=== PATIENT | female | born 1940 | race Caucasian/White ===

== ENCOUNTER 2021-12-20 00:51 | Inpatient (IN) | payer MEDICARE ==
[2021-12-20] VITALS (44 sets, daily range): BP systolic 79–140; BP diastolic 29–89
[~2021-12-20] VITALS: Ht 165.1 cm; Wt 87.1 kg
[2021-12-20 02:16] LABS: BASOPHILS % 0.3 % (0.0-1.0); EOSINOPHILS # (AUTO) 0.1 (0.0-0.4); EOSINOPHILS % 0.8 % (0.0-6.0); HEMATOCRIT 27.6 % (34.2-44.1); HEMOGLOBIN 8.6 g/dL (12.0-16.0); LYMPHOCYTES # (AUTO) 0.5 (1.0-3.2); LYMPHOCYTES % 3.5 % (18.0-39.1); MEAN CORPUSCULAR HEMOGLOBIN 30.1 pg (28-32); MEAN CORPUSCULAR HGB CONC 31.2 g/dL (31-35); MEAN CORPUSCULAR VOLUME 96.5 fL (81-99); MONOCYTES # (AUTO) 0.9 (0.2-0.8); MONOCYTES % 6.3 % (4.4-11.3); NEUTROPHILS # (AUTO) 12.8 (2.1-6.9); NEUTROPHILS % 88.5 % (38.7-80.0); PLATELET COUNT 191 x10e3/uL (140-360); RED BLOOD COUNT 2.86 x10e6/uL (3.6-5.1); RED CELL DISTRIBUTION WIDTH 15.8 % (11.7-14.4)
[2021-12-20] MEDS: LACTATED RINGER'S 1,000 ML INJ SCH ×2 (02:25→18:33)
[2021-12-20 02:26] LABS: INR 1.56
[2021-12-20 02:34] LABS: % IRON SATURATION 7 % (15-50); IRON 20 ug/dL (50-170); TOTAL IRON BINDING CAPACITY 294 ug/dL (261-478); TRANSFERRIN 210 mg/dL (180-382)
[2021-12-20 02:37] LABS: ALBUMIN 2.9 g/dL (3.5-5.0); ALBUMIN/GLOBULIN RATIO 0.9 (0.8-2.0); ANION GAP 16.2 mmol/L (8-16); CALCIUM 8.5 mg/dL (8.4-10.2); CREATININE, SERUM 1.4 mg/dL (0.57-1.11); POTASSIUM 4.2 mmol/L (3.5-5.1)
[2021-12-20] MEDS ORDERED: PHYTONADIONE 10 MG/ML AMP IV ONE (03:00)
[2021-12-20] MEDS ORDERED: MELATONIN3 MG PO (03:38)
[2021-12-20] MEDS ORDERED: SIMVASTATIN80 MG PO (03:38)
[2021-12-20] MEDS ORDERED: ULTRAM 50MG50 MG PO (03:38)
[2021-12-20] MEDS ORDERED: ISOSORBIDE MONO20 MG PO (03:38)
[2021-12-20] MEDS ORDERED: ENTRESTO 24 MG1 EACH PO (03:38)
[2021-12-20] MEDS ORDERED: LASIX20 MG PO (03:38)
[2021-12-20] MEDS ORDERED: CARVEDILOL25 MG PO (03:38)
[2021-12-20] MEDS ORDERED: XARELTO20 MG PO (03:38)
[2021-12-20 08:33] LABS: BASOPHILS % 0.3 % (0.0-1.0); EOSINOPHILS # (AUTO) 0.3 (0.0-0.4); EOSINOPHILS % 2.7 % (0.0-6.0); HEMATOCRIT 23.9 % (34.2-44.1); HEMOGLOBIN 7.7 g/dL (12.0-16.0); LYMPHOCYTES # (AUTO) 0.4 (1.0-3.2); LYMPHOCYTES % 3.6 % (18.0-39.1); MEAN CORPUSCULAR HEMOGLOBIN 30.2 pg (28-32); MEAN CORPUSCULAR HGB CONC 32.2 g/dL (31-35); MEAN CORPUSCULAR VOLUME 93.7 fL (81-99); MONOCYTES # (AUTO) 0.8 (0.2-0.8); NEUTROPHILS # (AUTO) 8.8 (2.1-6.9); NEUTROPHILS % 84.7 % (38.7-80.0); PLATELET COUNT 179 x10e3/uL (140-360); RED BLOOD COUNT 2.55 x10e6/uL (3.6-5.1)
[2021-12-20] MEDS ORDERED: SODIUM CHLORIDE 0.9% 250ML 250 ML IV ONE (10:15)
[2021-12-20 12:18] LABS: ALBUMIN 2.7 g/dL (3.5-5.0); ALBUMIN/GLOBULIN RATIO 0.9 (0.8-2.0); ANION GAP 13.1 mmol/L (8-16); CALCIUM 8.6 mg/dL (8.4-10.2); CREATININE, SERUM 1.27 mg/dL (0.57-1.11); POTASSIUM 4.1 mmol/L (3.5-5.1)
[2021-12-20] MEDS ORDERED: ESMOLOL HCL 100MG/10ML 10 MG/ML VIAL ONE (12:18)
[2021-12-20] MEDS: HYDROMORPHONE 1MG/1ML INJ IV PRN (12:32)
[2021-12-20] MEDS ORDERED: DIPHENHYDRAMINE HCL INJ 50 MG/ML VIAL IV ONE ×2 (14:30→17:30)
[2021-12-20 15:10] LABS: CLARITY,URINE HAZY (CLEAR); COLOR,URINE AMBER (YELLOW); KETONES,URINE NEGATIVE (NEGATIVE); LEUKOCYTE ESTERASE ,URINE SMALL (NEGATIVE); NITRITE,URINE POSITIVE (NEGATIVE); PROTEIN,URINE DIPSTICK 1+ (NEGATIVE); URINE UROBILINOGEN 1 mg/dL (0.2 - 1)
[2021-12-20 15:11] LABS: AMORPHOUS SEDIMENT,URINE FEW (FEW); BACTERIA,URINE FEW /HPF; EPITHELIAL CELLS,URINE FEW /LPF; WBC,URINE (MAN) 21-50 /HPF (0-5)
[2021-12-20 15:12] LABS: MUCUS,URINE FEW (RARE)
[2021-12-20] MEDS ORDERED: SODIUM CHLORIDE 0.9% 250ML 250 ML ONE (16:03)
[2021-12-20 18:04] LABS: BASOPHILS % 0.4 % (0.0-1.0); EOSINOPHILS # (AUTO) 0.5 (0.0-0.4); EOSINOPHILS % 6.8 % (0.0-6.0); HEMATOCRIT 31.4 % (34.2-44.1); HEMOGLOBIN 9.9 g/dL (12.0-16.0); LYMPHOCYTES # (AUTO) 0.7 (1.0-3.2); LYMPHOCYTES % 9.1 % (18.0-39.1); MEAN CORPUSCULAR HGB CONC 31.5 g/dL (31-35); MEAN CORPUSCULAR VOLUME 95.2 fL (81-99); MONOCYTES # (AUTO) 0.6 (0.2-0.8); MONOCYTES % 7.5 % (4.4-11.3); NEUTROPHILS # (AUTO) 5.6 (2.1-6.9); NEUTROPHILS % 75.7 % (38.7-80.0); PLATELET COUNT 151 x10e3/uL (140-360)
[2021-12-20] MEDS: SIMVASTATIN 40 MG TAB PO SCH (20:25)
[2021-12-21] VITALS (25 sets, daily range): BP systolic 67–148; BP diastolic 33–68
[2021-12-21] MEDS ORDERED: CYANOCOBALAMIN INJ 1,000 MCG/ML VIAL IM ONE (04:15)
[2021-12-21] MEDS: LACTATED RINGER'S 1,000 ML INJ SCH ×2 (04:40→17:18)
[2021-12-21] MEDS: TRAMADOL HCL 50 MG TAB PO PRN ×2 (05:45→21:12)
[2021-12-21 06:45] LABS: BASOPHILS % 0.3 % (0.0-1.0); EOSINOPHILS # (AUTO) 0.4 (0.0-0.4); EOSINOPHILS % 5.5 % (0.0-6.0); HEMOGLOBIN 9.1 g/dL (12.0-16.0); LYMPHOCYTES # (AUTO) 0.5 (1.0-3.2); LYMPHOCYTES % 7.8 % (18.0-39.1); MEAN CORPUSCULAR HEMOGLOBIN 29.5 pg (28-32); MEAN CORPUSCULAR HGB CONC 30.3 g/dL (31-35); MEAN CORPUSCULAR VOLUME 97.4 fL (81-99); MONOCYTES # (AUTO) 0.6 (0.2-0.8); MONOCYTES % 8.5 % (4.4-11.3); NEUTROPHILS # (AUTO) 5.4 (2.1-6.9); NEUTROPHILS % 77.5 % (38.7-80.0); PLATELET COUNT 145 x10e3/uL (140-360); RED BLOOD COUNT 3.08 x10e6/uL (3.6-5.1); RED CELL DISTRIBUTION WIDTH 17.3 % (11.7-14.4)
[2021-12-21 07:00] LABS: INR 1.06; PROTHROMBIN TIME 14.8 seconds (11.9-14.5)
[2021-12-21 07:10] LABS: ALBUMIN 2.6 g/dL (3.5-5.0); ALBUMIN/GLOBULIN RATIO 0.8 (0.8-2.0); ANION GAP 15.2 mmol/L (8-16); CALCIUM 8.8 mg/dL (8.4-10.2); CREATININE, SERUM 1.18 mg/dL (0.57-1.11); POTASSIUM 4.2 mmol/L (3.5-5.1)
[2021-12-21] MEDS: CYANOCOBALAMIN INJ 1,000 MCG/ML VIAL IM SCH (09:17)
[2021-12-21] MEDS: IRON SUCROSE 100 MG in SODIUM CHLORIDE 0.9% 100 ML IV SCH (09:17)
[2021-12-21] MEDS ORDERED: FUROSEMIDE 40 MG TAB PO ONE (17:30)
[2021-12-21] MEDS ORDERED: FUROSEMIDE INJ 10 MG/ML 4 ML VIAL IV STA (18:29)
[2021-12-21] MEDS: SIMVASTATIN 40 MG TAB PO SCH (21:09)
[2021-12-22] VITALS (8 sets, daily range): BP systolic 127–165; BP diastolic 52–75
[2021-12-22 05:45] LABS: BASOPHILS % 0.5 % (0.0-1.0); EOSINOPHILS # (AUTO) 0.3 (0.0-0.4); HEMATOCRIT 31.4 % (34.2-44.1); HEMOGLOBIN 10.2 g/dL (12.0-16.0); LYMPHOCYTES # (AUTO) 0.8 (1.0-3.2); MEAN CORPUSCULAR HEMOGLOBIN 29.7 pg (28-32); MEAN CORPUSCULAR HGB CONC 32.5 g/dL (31-35); MEAN CORPUSCULAR VOLUME 91.5 fL (81-99); MONOCYTES # (AUTO) 0.8 (0.2-0.8); MONOCYTES % 13.4 % (4.4-11.3); NEUTROPHILS # (AUTO) 3.7 (2.1-6.9); NEUTROPHILS % 65.2 % (38.7-80.0); PLATELET COUNT 149 x10e3/uL (140-360); RED BLOOD COUNT 3.43 x10e6/uL (3.6-5.1); RED CELL DISTRIBUTION WIDTH 16.2 % (11.7-14.4)
[2021-12-22 06:05] LABS: ALBUMIN 2.7 g/dL (3.5-5.0); ALBUMIN/GLOBULIN RATIO 0.7 (0.8-2.0); ANION GAP 17.2 mmol/L (8-16); CALCIUM 9.3 mg/dL (8.4-10.2); CREATININE, SERUM 1.13 mg/dL (0.57-1.11); POTASSIUM 4.2 mmol/L (3.5-5.1)
[2021-12-22] MEDS: CYANOCOBALAMIN INJ 1,000 MCG/ML VIAL IM SCH (10:47)
[2021-12-22] MEDS: TRAMADOL HCL 50 MG TAB PO PRN ×2 (11:02→23:36)
[2021-12-22] MEDS: IRON SUCROSE 100 MG in SODIUM CHLORIDE 0.9% 100 ML IV SCH (11:03)
[2021-12-22] MEDS ORDERED: LIDOCAINE HCL 2% LOCAL INJ 5 ML SDV VIAL INJ ONE (12:34)
[2021-12-22] MEDS ORDERED: PROPOFOL IV EMULSION 10 MG/ML 20 ML VIAL ONE (12:34)
[2021-12-22] MEDS ORDERED: MACROBID 100 M100 MG PO (20:30)
[2021-12-22] MEDS ORDERED: BETAPACE80 MG PO (20:35)
[2021-12-22] MEDS: SIMVASTATIN 40 MG TAB PO SCH (22:36)
[2021-12-22] MEDS ORDERED: SODIUM CHLORIDE 0.9% 250ML 250 ML ONE (22:39)
[2021-12-22] MEDS ORDERED: ISOSORBIDE MONO30 MG PO (22:46)
[2021-12-23] VITALS (7 sets, daily range): BP systolic 110–150; BP diastolic 45–84
[2021-12-23] MEDS ORDERED: BISACODYL 5 MG TAB EC PO ONE ×2 (00:30)
[2021-12-23] MEDS ORDERED: CITRATE OF MAGNESIA 300ML BOTTLE PO ONE ×3 (05:00→19:25)
[2021-12-23 08:54] LABS: BASOPHILS % 0.6 % (0.0-1.0); EOSINOPHILS # (AUTO) 0.4 (0.0-0.4); EOSINOPHILS % 5.5 % (0.0-6.0); HEMOGLOBIN 10.9 g/dL (12.0-16.0); LYMPHOCYTES # (AUTO) 0.8 (1.0-3.2); MEAN CORPUSCULAR HEMOGLOBIN 29.6 pg (28-32); MEAN CORPUSCULAR HGB CONC 31.1 g/dL (31-35); MEAN CORPUSCULAR VOLUME 95.1 fL (81-99); MONOCYTES # (AUTO) 0.8 (0.2-0.8); NEUTROPHILS # (AUTO) 4.6 (2.1-6.9); NEUTROPHILS % 69.1 % (38.7-80.0); PLATELET COUNT 175 x10e3/uL (140-360); RED BLOOD COUNT 3.68 x10e6/uL (3.6-5.1); RED CELL DISTRIBUTION WIDTH 15.5 % (11.7-14.4)
[2021-12-23] MEDS ORDERED: ISOSORBIDE MONONITRATE 30 MG TAB CR PO SCH (09:00)
[2021-12-23 09:17] LABS: ALBUMIN 2.8 g/dL (3.5-5.0); ALBUMIN/GLOBULIN RATIO 0.8 (0.8-2.0); ANION GAP 18.3 mmol/L (8-16); CALCIUM 9.4 mg/dL (8.4-10.2); CREATININE, SERUM 0.94 mg/dL (0.57-1.11); POTASSIUM 4.3 mmol/L (3.5-5.1)
[2021-12-23] MEDS: CYANOCOBALAMIN INJ 1,000 MCG/ML VIAL IM SCH (12:08)
[2021-12-23] MEDS: NITROFURANTOIN MACROCRYSTALS 100 MG CAP PO SCH ×2 (12:08→18:58)
[2021-12-23] MEDS: IRON SUCROSE 100 MG in SODIUM CHLORIDE 0.9% 100 ML IV SCH (12:08)
[2021-12-23] MEDS: VALSARTAN/SACUBITRIL 24MG/26MG 1 EA TAB PO SCH ×2 (12:09→18:58)
[2021-12-23] MEDS: CARVEDILOL 12.5 MG TAB PO SCH ×2 (12:09→18:59)
[2021-12-23] MEDS: FUROSEMIDE 40 MG TAB PO SCH (12:10)
[2021-12-23] MEDS: ISOSORBIDE MONONITRATE 30 MG TAB CR PO SCH (12:10)
[2021-12-23] MEDS ORDERED: SOTALOL HCL 80 MG TAB PO SCH (21:00)
[2021-12-23] MEDS: SIMVASTATIN 40 MG TAB PO SCH (21:07)
[2021-12-23] MEDS: TRAMADOL HCL 50 MG TAB PO PRN (21:11)
[2021-12-23] MEDS: HYDROMORPHONE 1MG/1ML INJ IV PRN (22:45)
[2021-12-23] MEDS: ONDANSETRON HCL INJ 2MG/ML 2ML 2 MG/ML VIAL IV PRN (23:29)
[2021-12-24] VITALS (9 sets, daily range): BP systolic 100–133; BP diastolic 49–94
[2021-12-24] MEDS: IRON SUCROSE 100 MG in SODIUM CHLORIDE 0.9% 100 ML IV SCH (09:15)
[2021-12-24] MEDS: CYANOCOBALAMIN INJ 1,000 MCG/ML VIAL IM SCH (09:15)
[2021-12-24] MEDS: NITROFURANTOIN MACROCRYSTALS 100 MG CAP PO SCH ×2 (09:16→17:29)
[2021-12-24] MEDS: FUROSEMIDE 40 MG TAB PO SCH (09:17)
[2021-12-24] MEDS: ISOSORBIDE MONONITRATE 30 MG TAB CR PO SCH (09:17)
[2021-12-24] MEDS: CARVEDILOL 12.5 MG TAB PO SCH ×2 (09:17→17:00)
[2021-12-24] MEDS: VALSARTAN/SACUBITRIL 24MG/26MG 1 EA TAB PO SCH ×2 (09:18→17:29)
[2021-12-24] MEDS: SOTALOL HCL 80 MG TAB PO SCH ×2 (09:18→17:29)
[2021-12-24] MEDS ORDERED: FUROSEMIDE INJ 10 MG/ML 4 ML VIAL IV ONE (17:15)
[2021-12-24] MEDS: SIMVASTATIN 40 MG TAB PO SCH (20:18)
[2021-12-25] VITALS (8 sets, daily range): BP systolic 105–122; BP diastolic 53–72
[2021-12-25 07:05] LABS: BASOPHILS # (AUTO) 0.1 (0.0-0.1); BASOPHILS % 0.5 % (0.0-1.0); EOSINOPHILS # (AUTO) 0.8 (0.0-0.4); EOSINOPHILS % 5.9 % (0.0-6.0); HEMATOCRIT 32.3 % (34.2-44.1); HEMOGLOBIN 10.2 g/dL (12.0-16.0); LYMPHOCYTES # (AUTO) 0.5 (1.0-3.2); LYMPHOCYTES % 3.4 % (18.0-39.1); MEAN CORPUSCULAR HEMOGLOBIN 29.2 pg (28-32); MEAN CORPUSCULAR HGB CONC 31.6 g/dL (31-35); MEAN CORPUSCULAR VOLUME 92.6 fL (81-99); MONOCYTES % 7.2 % (4.4-11.3); NEUTROPHILS # (AUTO) 11.2 (2.1-6.9); NEUTROPHILS % 81.8 % (38.7-80.0); PLATELET COUNT 176 x10e3/uL (140-360); RED BLOOD COUNT 3.49 x10e6/uL (3.6-5.1); RED CELL DISTRIBUTION WIDTH 15.2 % (11.7-14.4)
[2021-12-25 07:43] LABS: ALBUMIN 2.5 g/dL (3.5-5.0); ALBUMIN/GLOBULIN RATIO 0.7 (0.8-2.0); ALKALINE PHOSPHATASE 69 IU/L (40-150); ANION GAP 18.3 mmol/L (8-16); BLOOD UREA NITROGEN 22 mg/dL (7-26); BUN/CREATININE RATIO 20 (6-25); CALCIUM 8.9 mg/dL (8.4-10.2); CARBON DIOXIDE 28 mmol/L (22-29); CHLORIDE 103 mmol/L (98-107); GLUCOSE 91 mg/dL (74-118); POTASSIUM 3.3 mmol/L (3.5-5.1); SODIUM 146 mmol/L (136-145)
[2021-12-25 07:50] LABS: ALANINE AMINOTRANSFERASE < 6 IU/L (0-55)
[2021-12-25] MEDS: CARVEDILOL 12.5 MG TAB PO SCH ×2 (08:05→17:00)
[2021-12-25] MEDS: NITROFURANTOIN MACROCRYSTALS 100 MG CAP PO SCH ×2 (08:05→17:00)
[2021-12-25] MEDS: IRON SUCROSE 100 MG in SODIUM CHLORIDE 0.9% 100 ML IV SCH (09:00)
[2021-12-25] MEDS: FUROSEMIDE 40 MG TAB PO SCH (09:52)
[2021-12-25] MEDS: CYANOCOBALAMIN INJ 1,000 MCG/ML VIAL IM SCH (09:52)
[2021-12-25] MEDS: ISOSORBIDE MONONITRATE 30 MG TAB CR PO SCH (09:53)
[2021-12-25] MEDS: VALSARTAN/SACUBITRIL 24MG/26MG 1 EA TAB PO SCH ×2 (09:54→17:00)
[2021-12-25] MEDS: SOTALOL HCL 80 MG TAB PO SCH ×2 (09:54→17:00)
[2021-12-25] MEDS ORDERED: POTASSIUM CHLORIDE 20MEQ/100ML 100 ML IV ONE (11:45)
[2021-12-25] MEDS ORDERED: FUROSEMIDE INJ 10 MG/ML 4 ML VIAL IV ONE (11:45)
[2021-12-25] MEDS ORDERED: PEG (High)/E-LYTE SOLN 4,000 ML BTL PO ONE (12:15)
[2021-12-25] MEDS ORDERED: PROPOFOL IV EMULSION 10 MG/ML 20 ML VIAL ONE (12:58)
[2021-12-25] MEDS ORDERED: GLUCAGON FOR INJ 1 MG VIAL ONE (12:58)
[2021-12-25] MEDS ORDERED: LIDOCAINE HCL 2% LOCAL INJ 5 ML SDV VIAL INJ ONE (12:58)
[2021-12-25] MEDS ORDERED: HYOSCYAMINE SULFATE 0.5 MG/ML INJ ONE (12:58)
[2021-12-25] MEDS: SIMVASTATIN 40 MG TAB PO SCH (20:33)
[2021-12-25] MEDS: TRAMADOL HCL 50 MG TAB PO PRN ×2 (22:41→23:00)
[2021-12-25] MEDS: HYDROMORPHONE 1MG/1ML INJ IV PRN (22:59)
[2021-12-25] MEDS: ONDANSETRON HCL INJ 2MG/ML 2ML 2 MG/ML VIAL IV PRN (23:00)
[2021-12-26] VITALS (7 sets, daily range): BP systolic 106–137; BP diastolic 58–83
[2021-12-26] MEDS: MELATONIN 5 MG TABLET PO PRN (02:27)
[2021-12-26] MEDS ORDERED: SODIUM CHLORIDE 0.9% 100 ML ONE (08:33)
[2021-12-26] MEDS: ISOSORBIDE MONONITRATE 30 MG TAB CR PO SCH (08:47)
[2021-12-26] MEDS: VALSARTAN/SACUBITRIL 24MG/26MG 1 EA TAB PO SCH ×2 (08:47→18:29)
[2021-12-26] MEDS: CYANOCOBALAMIN INJ 1,000 MCG/ML VIAL IM SCH (08:47)
[2021-12-26] MEDS: NITROFURANTOIN MACROCRYSTALS 100 MG CAP PO SCH ×2 (08:47→18:29)
[2021-12-26] MEDS: CARVEDILOL 12.5 MG TAB PO SCH ×2 (08:48→17:00)
[2021-12-26] MEDS: FUROSEMIDE 40 MG TAB PO SCH (08:48)
[2021-12-26] MEDS: SOTALOL HCL 80 MG TAB PO SCH ×2 (08:48→18:29)
[2021-12-26 08:54] LABS: BASOPHILS # (AUTO) 0.1 (0.0-0.1); BASOPHILS % 0.5 % (0.0-1.0); EOSINOPHILS # (AUTO) 0.6 (0.0-0.4); EOSINOPHILS % 6.9 % (0.0-6.0); HEMATOCRIT 32.8 % (34.2-44.1); HEMOGLOBIN 9.8 g/dL (12.0-16.0); LYMPHOCYTES # (AUTO) 0.6 (1.0-3.2); LYMPHOCYTES % 6.8 % (18.0-39.1); MEAN CORPUSCULAR HEMOGLOBIN 29.4 pg (28-32); MEAN CORPUSCULAR HGB CONC 29.9 g/dL (31-35); MEAN CORPUSCULAR VOLUME 98.5 fL (81-99); MONOCYTES # (AUTO) 0.7 (0.2-0.8); MONOCYTES % 7.6 % (4.4-11.3); NEUTROPHILS # (AUTO) 7.1 (2.1-6.9); NEUTROPHILS % 76.7 % (38.7-80.0); PLATELET COUNT 161 x10e3/uL (140-360); RED BLOOD COUNT 3.33 x10e6/uL (3.6-5.1); RED CELL DISTRIBUTION WIDTH 15.4 % (11.7-14.4)
[2021-12-26] MEDS: IRON SUCROSE 100 MG in SODIUM CHLORIDE 0.9% 100 ML IV SCH (08:54)
[2021-12-26 09:19] LABS: ANION GAP 17.1 mmol/L (8-16); CALCIUM 8.4 mg/dL (8.4-10.2); CREATININE, SERUM 1.05 mg/dL (0.57-1.11); POTASSIUM 3.1 mmol/L (3.5-5.1)
[2021-12-26] MEDS ORDERED: POTASSIUM CHLORIDE 20 MEQ TAB CR PO ONE (14:00)
[2021-12-26] MEDS: RIVAROXABAN 20 MG TABLET PO SCH (20:56)
[2021-12-26] MEDS: SIMVASTATIN 40 MG TAB PO SCH (20:57)
[2021-12-26] MEDS: TRAMADOL HCL 50 MG TAB PO PRN (21:21)
[2021-12-27] VITALS (8 sets, daily range): BP systolic 100–123; BP diastolic 53–71
[2021-12-27] MEDS ORDERED: FUROSEMIDE INJ 10 MG/ML 4 ML VIAL IV ONE ×2 (02:45→08:30)
[2021-12-27] MEDS ORDERED: LORAZEPAM 0.5 MG TAB PO ONE (02:45)
[2021-12-27] MEDS: CYANOCOBALAMIN INJ 1,000 MCG/ML VIAL IM SCH (09:00)
[2021-12-27] MEDS: NITROFURANTOIN MACROCRYSTALS 100 MG CAP PO SCH ×2 (09:01→16:19)
[2021-12-27] MEDS: CARVEDILOL 12.5 MG TAB PO SCH ×2 (09:01→16:19)
[2021-12-27] MEDS: VALSARTAN/SACUBITRIL 24MG/26MG 1 EA TAB PO SCH ×2 (09:01→16:19)
[2021-12-27] MEDS: ISOSORBIDE MONONITRATE 30 MG TAB CR PO SCH (09:02)
[2021-12-27] MEDS: FUROSEMIDE 40 MG TAB PO SCH (09:02)
[2021-12-27] MEDS: SOTALOL HCL 80 MG TAB PO SCH ×2 (09:02→16:19)
[2021-12-27 10:15] LABS: BASOPHILS # (AUTO) 0.1 (0.0-0.1); BASOPHILS % 0.5 % (0.0-1.0); EOSINOPHILS # (AUTO) 0.7 (0.0-0.4); EOSINOPHILS % 4.9 % (0.0-6.0); HEMATOCRIT 33.7 % (34.2-44.1); HEMOGLOBIN 10.4 g/dL (12.0-16.0); LYMPHOCYTES # (AUTO) 0.7 (1.0-3.2); LYMPHOCYTES % 4.7 % (18.0-39.1); MEAN CORPUSCULAR HEMOGLOBIN 29.7 pg (28-32); MEAN CORPUSCULAR HGB CONC 30.9 g/dL (31-35); MEAN CORPUSCULAR VOLUME 96.3 fL (81-99); MONOCYTES # (AUTO) 0.9 (0.2-0.8); MONOCYTES % 6.3 % (4.4-11.3); NEUTROPHILS # (AUTO) 11.6 (2.1-6.9); PLATELET COUNT 212 x10e3/uL (140-360); RED CELL DISTRIBUTION WIDTH 15.6 % (11.7-14.4)
[2021-12-27 10:46] LABS: ALBUMIN 2.5 g/dL (3.5-5.0); ALBUMIN/GLOBULIN RATIO 0.7 (0.8-2.0); ANION GAP 19.4 mmol/L (8-16); CALCIUM 8.8 mg/dL (8.4-10.2); CREATININE, SERUM 1.17 mg/dL (0.57-1.11); POTASSIUM 3.4 mmol/L (3.5-5.1)
[2021-12-27] MEDS: POTASSIUM CHLORIDE 20 MEQ TAB CR PO SCH (14:48)
[2021-12-27] MEDS ORDERED: FUROSEMIDE INJ 10 MG/ML 4 ML VIAL IV NR (16:00)
[2021-12-27] MEDS: SIMVASTATIN 40 MG TAB PO SCH (21:52)
[2021-12-27] MEDS: RIVAROXABAN 20 MG TABLET PO SCH (21:52)
[2021-12-27] MEDS ORDERED: TRAMADOL HCL 50 MG TAB PO PRN (22:15)
[2021-12-27] MEDS: MELATONIN 5 MG TABLET PO PRN (22:55)
[2021-12-28] VITALS (10 sets, daily range): BP systolic 96–117; BP diastolic 53–75
[2021-12-28] MEDS ORDERED: LORAZEPAM 0.5 MG TAB PO ONE (01:30)
[2021-12-28] MEDS ORDERED: FUROSEMIDE INJ 10 MG/ML 4 ML VIAL IV NR ×2 (06:00→18:00)
[2021-12-28] MEDS: CARVEDILOL 12.5 MG TAB PO SCH ×2 (08:55→18:05)
[2021-12-28] MEDS: CYANOCOBALAMIN INJ 1,000 MCG/ML VIAL IM SCH (08:56)
[2021-12-28] MEDS: PANTOPRAZOLE SOD 40 MG TABEC PO SCH ×2 (08:56→15:55)
[2021-12-28] MEDS: NITROFURANTOIN MACROCRYSTALS 100 MG CAP PO SCH ×2 (08:56→18:00)
[2021-12-28] MEDS: POTASSIUM CHLORIDE 20 MEQ TAB CR PO SCH (08:58)
[2021-12-28] MEDS: FUROSEMIDE 40 MG TAB PO SCH (09:02)
[2021-12-28] MEDS: VALSARTAN/SACUBITRIL 24MG/26MG 1 EA TAB PO SCH ×2 (09:50→18:05)
[2021-12-28] MEDS: ISOSORBIDE MONONITRATE 30 MG TAB CR PO SCH (09:51)
[2021-12-28] MEDS: SOTALOL HCL 80 MG TAB PO SCH ×2 (09:51→18:06)
[2021-12-28] MEDS ORDERED: LORAZEPAM 0.5 MG TAB PO PRN (12:30)
[2021-12-28] MEDS: NYSTATIN SUSPENSION 5 ML UDC PO SCH ×2 (15:17→21:35)
[2021-12-28] MEDS: SIMVASTATIN 40 MG TAB PO SCH (20:14)
[2021-12-28] MEDS: RIVAROXABAN 20 MG TABLET PO SCH (20:14)
[2021-12-28] MEDS: MELATONIN 5 MG TABLET PO PRN (21:35)
[2021-12-29 00:33] VITALS: BP 107/59
[2021-12-29 04:20] VITALS: BP 107/56
[2021-12-29 05:42] LABS: BASOPHILS # (AUTO) 0.1 (0.0-0.1); BASOPHILS % 0.7 % (0.0-1.0); EOSINOPHILS # (AUTO) 0.5 (0.0-0.4); EOSINOPHILS % 6.9 % (0.0-6.0); HEMATOCRIT 30.6 % (34.2-44.1); HEMOGLOBIN 9.6 g/dL (12.0-16.0); LYMPHOCYTES # (AUTO) 0.8 (1.0-3.2); LYMPHOCYTES % 11.3 % (18.0-39.1); MEAN CORPUSCULAR HEMOGLOBIN 29.3 pg (28-32); MEAN CORPUSCULAR HGB CONC 31.4 g/dL (31-35); MEAN CORPUSCULAR VOLUME 93.3 fL (81-99); MONOCYTES # (AUTO) 0.7 (0.2-0.8); MONOCYTES % 10.6 % (4.4-11.3); NEUTROPHILS # (AUTO) 4.7 (2.1-6.9); NEUTROPHILS % 68.6 % (38.7-80.0); PLATELET COUNT 164 x10e3/uL (140-360); RED BLOOD COUNT 3.28 x10e6/uL (3.6-5.1); RED CELL DISTRIBUTION WIDTH 15.7 % (11.7-14.4)
[2021-12-29] MEDS: NYSTATIN SUSPENSION 5 ML UDC PO SCH (06:07)
[2021-12-29 06:12] LABS: ALBUMIN 2.3 g/dL (3.5-5.0); ALBUMIN/GLOBULIN RATIO 0.7 (0.8-2.0); ANION GAP 15.6 mmol/L (8-16); CREATININE, SERUM 1.24 mg/dL (0.57-1.11); POTASSIUM 3.6 mmol/L (3.5-5.1)
[2021-12-29] MEDS: CARVEDILOL 12.5 MG TAB PO SCH (08:00)
[2021-12-29 08:25] VITALS: BP 95/58
[2021-12-29 08:34] VITALS: BP 95/58
[2021-12-29] MEDS: NITROFURANTOIN MACROCRYSTALS 100 MG CAP PO SCH (08:38)
[2021-12-29] MEDS: SOTALOL HCL 80 MG TAB PO SCH (08:38)
[2021-12-29] MEDS: ISOSORBIDE MONONITRATE 30 MG TAB CR PO SCH (08:39)
[2021-12-29] MEDS: PANTOPRAZOLE SOD 40 MG TABEC PO SCH (08:40)
[2021-12-29] MEDS: VALSARTAN/SACUBITRIL 24MG/26MG 1 EA TAB PO SCH (08:40)
[2021-12-29] MEDS: FUROSEMIDE 40 MG TAB PO SCH (08:40)
[2021-12-29] MEDS: CYANOCOBALAMIN INJ 1,000 MCG/ML VIAL IM SCH (08:41)
[2021-12-29] MEDS: POTASSIUM CHLORIDE 20 MEQ TAB CR PO SCH (08:42)
[2021-12-29 11:42] VITALS: BP 97/40
[2021-12-29] MEDS ORDERED: ONDANSETRON HCL 4 MG ORAL DISINTEGRATING TAB PO PRN (12:15)
== END 2021-12-29 13:36 | disposition home health service (06) | DRG 377 ==
LOC: ICU 00:51 → MED/SURG3 12-21 13:21
PROC: 30233N1 Transfusion of Nonautologous Red Blood Cells into Peripheral Vein, Percutaneous Approach (ICD-10-PCS; 2021-12-20)
PROC: 0DB68ZX Excision of Stomach, Via Natural or Artificial Opening Endoscopic, Diagnostic (ICD-10-PCS; principal; 2021-12-23)
PROC: 0DB78ZX Excision of Stomach, Pylorus, Via Natural or Artificial Opening Endoscopic, Diagnostic (ICD-10-PCS; 2021-12-23)
PROC: 0DJD8ZZ Inspection of Lower Intestinal Tract, Via Natural or Artificial Opening Endoscopic (ICD-10-PCS; 2021-12-25)
DX: K57.31 Diverticulosis of large intestine without perforation or abscess with bleeding (principal); I50.23 Acute on chronic systolic (congestive) heart failure; D62 Acute posthemorrhagic anemia; I13.0 Hypertensive heart and chronic kidney disease with heart failure and stage 1 through stage 4 chronic kidney disease, or unspecified chronic kidney disease; I48.0 Paroxysmal atrial fibrillation; Z79.01 Long term (current) use of anticoagulants; K44.9 Diaphragmatic hernia without obstruction or gangrene; I25.10 Atherosclerotic heart disease of native coronary artery without angina pectoris; M25.519 Pain in unspecified shoulder; M25.59 Pain in other specified joint; M54.9 Dorsalgia, unspecified; G89.29 Other chronic pain; Z88.6 Allergy status to analgesic agent; Z88.1 Allergy status to other antibiotic agents; Z91.048 Other nonmedicinal substance allergy status; E87.6 Hypokalemia; E78.5 Hyperlipidemia, unspecified; N18.9 Chronic kidney disease, unspecified; Z95.1 Presence of aortocoronary bypass graft; Z20.822 Contact with and (suspected) exposure to COVID-19; K29.70 Gastritis, unspecified, without bleeding; R00.1 Bradycardia, unspecified
CPT/HCPCS: 36415; 43239; 45378; 71045; 71046; 80048; 80053; 81001; 82607; 82746; 83540; 83880; 84466; 85025; 85610; 86078; 86850; 86900; 86920; 88304; 88305; 88312; 88342; 93005; 93306; 94799; 96360; 96361; 99251; J0696; J1170; J1200; J1610; J1756; J1940; J1980; J2001; J2405; J3420; J3430; J3480; J7050; J7121; P9016